=== PATIENT | male | born 1975 | race Caucasian/White ===

== ENCOUNTER 2016-11-21 20:04 | Emergency (ER) | payer OTHER ==
--- NOTE | ~2016-11-21 | CT4 ---
[facility] A Service of [facility] RADIOLOGY TEXT RESULTS PATIENT: ADRIÁN MADERA LOCATION: [facility] : 71 UNIT #: [id number] AGE: [address]: Erich Venegas MD SEX: M ORDER DR: [id number] [facility] [address] [place], [place] [address] [id number] MR#: [id number] #: [id number] NAME: ADRIÁN MADERA : 1975 SEX: M STUDY DATE/TIME: 11/21/2016 19:41 UNIT: [facility] ROOM: STUDY DESCRIPTION: CT Abd and Pelv Wo Cont Attending Physician: Erich Venegas M.D. Ordering Physician: Erich Venegas M.D. Primary Care Physician: Sofiya Moreland M.D. MEDICAL IMAGING REPORT This report is preliminary unless electronic signature is present EXAM CT of the abdomen and pelvis without contrast. INDICATION Right-sided abdomen pain for 2-3 hours with history kidney stones. COMPARISON No comparison. TECHNIQUE Axial 3 mm images were obtained through the abdomen and pelvis without IV or oral contrast. This CT exam was performed with one or more of the following radiation dose reduction techniques: automatic exposure control, adjustment of mA and/or kV according to patient size, and iterative reconstruction. FINDINGS Lung bases are clear. The liver, gallbladder, spleen, pancreas, adrenal glands and aorta are normal. The right kidney shows mild hydronephrosis, and this is due to a distal ureteral stone at the ureterovesical juncture measuring 5 mm in diameter. There is a nonobstructing stone in the left kidney measuring 8 mm in diameter. The aorta is normal in size. There is no adenopathy. The bowel is normal. The bladder and prostate gland normal. The bones are unremarkable. IMPRESSION 1. 5 mm right ureterovesical juncture stone with mild hydronephrosis. 2. Nonobstructing 8 mm left renal stone. 3. Otherwise, normal. Dictated by... Robin Bergeron M.D. [facility] A Service of [facility] RADIOLOGY TEXT RESULTS PATIENT: ADRIÁN MADERA LOCATION: [facility] : 71 UNIT #: [id number] AGE: [address]: Erich Venegas MD SEX: M ORDER DR: THIS IS AN ELECTRONICALLY VERIFIED REPORT Robin Bergeron M.D. at 11/23/2016 7:14 AM Jayy TD: 11/21/2016 23:08 JOB #: [id number] MEDICAL IMAGING REPORT Page 1 of 1 COPY
[2016-11-21 18:45] LABS: URINE SOURCE CLEAN CATCH
[2016-11-21 18:59] LABS: BASOPHIL% 0.3 % (0-2.5); EOSINOPHIL# 0.1 X10e3 (0-0.7); HEMATOCRIT 46.3 % (38.0-50.0); HEMOGLOBIN 15.7 gm/dL (13.0-16.0); LYMPHOCYTE# 2.1 X10e3 (1.0-3.5); LYMPHOCYTE% 29.2 % (17.0-45.0); MEAN CELL VOLUME 86.7 FL (83-96); MEAN CORPUSCULAR HEMOGLOBIN 29.4 PG (28-34); MEAN PLATELET VOLUME 9.4 FL (6.5-11.5); MONOCYTE# 0.6 X10e3 (0-1.0); MONOCYTE% 8.7 % (3.0-12.0); NEUTROPHIL# 4.2 X10e3 (1.5-7.1); NEUTROPHIL% 59.8 % (40-75); PLATELET COUNT 177 X10e3 (140-420); RED BLOOD COUNT 5.34 X10e (3.90-5.60); RED CELL DISTRIBUTION WIDTH 13.1 % (11.0-15.5); WHITE BLOOD COUNT 7.1 X10e3 (4.0-10.5)
[2016-11-21 19:00] LABS: URINE APPEARANCE CLEAR; URINE BILIRUBIN NEG (NEG); URINE BLOOD 3+ (NEG); URINE COLOR DK YELLOW; URINE GLUCOSE NEG (NEG); URINE KETONE TRACE (NEG); URINE LEUKOCYTE ESTERASE 1+ (NEG); URINE NITRATE NEG (NEG); URINE PROTEIN 1+ (NEG); URINE SPECIFIC GRAVITY 1.024 (1.003-1.035)
[2016-11-21 19:02] LABS: DIFF IND NO
[2016-11-21 19:03] LABS: URBCS1 AUWI 100-200 /[HPF] (0-2); URINE BACTERIA AUWI NEG (NEGATIVE); URINE SQUAMOUS EPITHELIAL CELL OCC /[HPF]
[2016-11-21 19:05] LABS: CULTURE INDICATED? NO
[2016-11-21 19:11] LABS: ALBUMIN SERUM 4.4 g/dL (3.5-5.0); BILIRUBIN, DIRECT 0.1 mg/dL (0.0-0.2); BILIRUBIN,INDIRECT 1.3 mg/dL (0.0-0.9); BILIRUBIN,TOTAL 1.4 mg/dL (0.2-2.0); BUN/CREATININE RATIO 18.18; CALCIUM SERUM 9.4 mg/dL (8.4-10.2); CREATININE SERUM 1.1 mg/dL (0.6-1.4); GLOM FILT RATE Estimated 81.8 mL/min (>60); POTASSIUM 3.7 mmol/L (3.5-5.1); PROTEIN TOTAL SERUM 7.6 g/dL (6.0-8.3)
== END 2016-11-21 20:25 | disposition home or self-care (01) ==
LOC: CED 20:04
PROVIDERS: Emergency Medicine
DX: N20.0 Calculus of kidney (principal); F17.210 Nicotine dependence, cigarettes, uncomplicated
CPT/HCPCS: 36415; 74176; 80048; 80076; 81003; 83690; 85025; 96361; 96374; 96375; 99284; J1885; J2405